=== PATIENT | male | born 1955 | race Caucasian/White ===

== ENCOUNTER 2017-10-28 09:12 | Day surgery (SDC) | payer OTHER ==
[~2017-10-28 09:12] MED LIST: ATROPINE 1 MG/10 ML SYRINGE IV; CEFAZOLIN 1 GM INJ; DIPHENHYDRAMINE 50 MG INJ IV; EPHEDrine SULFATE 50 MG/5 ML SYG IV; FENTAnyl 50 MCG/ML VIAL IV; HYDROmorphONE (0.2 MG/ML) 10ML SYG IV; LABETALOL HCL 20MG INJ IV; MEPERIDINE 25 MG INJ IV; MIDAZOLAM 1 MG/ML 2 ML INJ IV; ONDANSETRON 4 MG INJ IV; OXYCODONE/ACETAMINOPHEN (5/325) TAB PO; hydrALAzine 20 MG INJ IV; morphine (1 MG/ML) 10ML SYRINGE IV
[2017-10-28] MEDS ORDERED: PROPOFOL 20 ML (10:31)
[2017-10-28] MEDS ORDERED: MIDAZOLAM 1 MG/ML 2 ML INJ (10:31)
[2017-10-28] MEDS ORDERED: ROCURONIUM 50 MG INJ (10:31)
[2017-10-28] MEDS ORDERED: GLYCOPYRROLATE 0.4 MG INJ (10:31)
[2017-10-28] MEDS ORDERED: LIDOCAINE 2% (SDV) 5 ML INJ (10:31)
[2017-10-28] MEDS ORDERED: NEOSTIGMINE 3 MG/3 ML SYRINGE (10:31)
[2017-10-28] MEDS ORDERED: FENTAnyl 50 MCG/ML VIAL (10:31)
[2017-10-28] MEDS ORDERED: SUCCINYLCHOLINE CHLORIDE 100 MG/5 ML SYG IV (10:46)
[2017-10-28] MEDS ORDERED: DEXTROSE 50% 50 ML SYRINGE (11:13)
[2017-10-28] MEDS ORDERED: DEXAMETHASONE 4 MG/ML 1 ML INJ (11:14)
[2017-10-28] MEDS ORDERED: ONDANSETRON 4 MG INJ (11:14)
[2017-10-28] MEDS: BUPIVACAINE 0.25% (MPF) 30 ML INJ (11:27)
[2017-10-28] MEDS ORDERED: BUPIVACAINE 0.5% (SDV) 30 ML INJ (11:45)
[2017-10-28] MEDS ORDERED: BACITRACIN/POLYMYXIN 28.35 GM OINT TOP (12:09)
[2017-10-28] MEDS ORDERED: HYDROmorphONE (0.2 MG/ML) 10ML SYG IV (13:08)
[2017-10-28] MEDS: HYDROmorphONE (0.2 MG/ML) 10ML SYG IV (13:18)
== END 2017-10-28 15:28 | disposition home or self-care (01) ==
LOC: SDS 09:12
DX: N48.89 Other specified disorders of penis (principal); N35.9 Urethral stricture, unspecified; Z85.89 Personal history of malignant neoplasm of other organs and systems
CPT/HCPCS: 52281; 87086; 88304